=== PATIENT | male | born 1995 | race Two or more races ===

== ENCOUNTER 2021-10-11 03:21 | Inpatient (IN) | payer OTHER ==
[~2021-10-11] VITALS: Ht 177.8 cm; Wt 79.5 kg
[2021-10-11] MEDS ORDERED: ONDANSETRON HCL 4 MG/2 ML VIAL IVP ONE (04:00)
[2021-10-11] MEDS ORDERED: SODIUM CHLORIDE 0.9% 1,000 ML IV ONE (04:00)
[2021-10-11] MEDS ORDERED: KETOROLAC TROMETHAMINE 30 MG/ML VIAL IVP ONE (04:00)
[2021-10-11 04:39] LABS: COVID AG,FIA SOURCE NASOPHARYNGEAL
[2021-10-11 04:41] LABS: APPEARANCE,URINE HAZY (CLEAR); BILIRUBIN,URINE NEGATIVE (NEGATIVE); GLUCOSE, URINE (UA) NEGATIVE (NEGATIVE); KETONES,URINE NEGATIVE (NEGATIVE); LEUKOCYTE ESTERASE ,URINE LARGE (NEGATIVE); NITRATE,URINE NEGATIVE (NEGATIVE); OCCULT BLOOD,URINE LARGE (NEGATIVE); PH,URINE 6.5 (5.0-8.0); PROTEIN,URINE 30-70 mg/dL (NEGATIVE); SPECIFIC GRAVITIY, URINE 1.011 (1.003-1.030); UROBILINOGEN,URINE <=1.0 mg/dL (<=1.0)
[2021-10-11 04:42] LABS: BASOPHILS % (AUTO) 0.5 % (0.0-2.0); HEMATOCRIT 42.6 % (41-53); HEMOGLOBIN 14.6 g/dL (13.5-17.5); LYMPHOCYTES % (AUTO) 20.4 % (22.0-44.0); MEAN CORPUSCULAR HEMOGLOBIN 28.9 pg (26.0-34.0); MEAN CORPUSCULAR HGB CONC 34.2 G/dL (31.0-37.0); MEAN CORPUSCULAR VOLUME 84 fL (80-100); MONOCYTES # (AUTO) 0.6 K/uL (0.1-1.0); MONOCYTES % (AUTO) 5.9 % (2.0-9.0); NEUTROPHILS # (AUTO) 5.6 K/uL (1.8-7.7); NEUTROPHILS % (AUTO) 56.1 % (40.0-70.0); PLATELET COUNT (AUTO) 239 K/uL (150-450); RED BLOOD CELL COUNT(AUTO) 5.05 MIL/uL (4.50-5.90); RED CELL DISTRIBUTION WIDTH 13.1 % (11.5-14.5)
[2021-10-11 04:51] LABS: BACTERIA,URINE None Seen /HPF (None Seen); RBC,URINE 51-100 /HPF (0-2)
[2021-10-11 04:53] LABS: ANION GAP 10 mmol/L (8-16); CALCIUM, TOTAL 9.2 mg/dL (8.8-10.5); CARBON DIOXIDE 26 mmol/L (22-29); CHLORIDE 102 mmol/L (98-107); CREATININE 0.78 mg/dL (0.60-1.30); GLUCOSE,RANDOM 104 mg/dL (70-110); POTASSIUM 3.6 mmol/L (3.5-5.1); SODIUM SERUM 138 mmol/L (136-145); UREA NITROGEN, BLOOD 14 mg/dL (7-18)
[2021-10-11 04:54] LABS: GLOMERULAR FILTR. RATE CALC > 60 mL/min (>60)
[2021-10-11 04:56] LABS: EOSINOPHILS % (AUTO) 17.1 % (1.0-6.0)
[2021-10-11 04:59] LABS: ALANINE AMINOTRANSFERASE 51 U/L (12-78); ALKALINE PHOSPHATASE 100 U/L (46-116); ASPARTATE AMINOTRANSFERASE 26 U/L (15-37); BILIRUBIN,TOTAL 0.5 mg/dL (0.1-1.0); TOTAL PROTEIN, SERUM 7.4 g/dL (6.4-8.2)
[2021-10-11] MEDS ORDERED: OXYB5TAB20 PO (05:23)
[2021-10-11] MEDS: CefTRIAXone 1 GM/DEXTROSE 50 ML IV ONE ×2 (05:29→05:49)
[2021-10-11] MEDS ORDERED: ACETAMINOPHEN 325 MG TABLET PO PRN (05:30)
[2021-10-11] MEDS ORDERED: ONDANSETRON HCL 4 MG/2 ML VIAL IVP PRN (05:30)
[2021-10-11] MEDS ORDERED: 0.9% SODIUM CHLORIDE 10 ML SYRINGE IVP PRN (05:30)
[2021-10-11] MEDS: CefTRIAXone 1 GM/DEXTROSE 50 ML IV SCH (05:45)
[2021-10-11 08:00] VITALS: BP 130/81
[2021-10-11 12:00] VITALS: BP 128/76
[2021-10-11 17:10] VITALS: BP 126/69
[2021-10-11 19:50] VITALS: BP 112/65
[2021-10-12] MEDS ORDERED: SODIUM CHLORIDE 0.9% 500 ML IV ONE (03:59)
[2021-10-12 04:15] VITALS: BP 113/66
[2021-10-12] MEDS: CefTRIAXone 1 GM/DEXTROSE 50 ML IV SCH (04:58)
[2021-10-12] MEDS ORDERED: SODIUM CL IRRIG SOLN BAG 6,000 ML IRRIG ONE (07:07)
[2021-10-12] MEDS ORDERED: IOHEXOL 240 MG/ML 20 ML VIAL ONE (07:23)
[2021-10-12] MEDS ORDERED: IOHEXOL 240 MG/ML 20 ML VIAL IARTER ONE (07:30)
[2021-10-12] MEDS ORDERED: HYDROmorphone 2 MG/ML VIAL IVP PRN (07:45)
[2021-10-12] MEDS ORDERED: MEPERIDINE-PF 25 MG/ML VIAL IVP PRN (07:45)
[2021-10-12] MEDS ORDERED: FentaNYL CITRATE PF 100 MCG/2 ML VIAL IVP PRN (07:45)
[2021-10-12] MEDS ORDERED: RINGERS SOLUTION,LACTATED 1,000 ML IV ONE (07:48)
[2021-10-12] MEDS ORDERED: FentaNYL CITRATE PF 100 MCG/2 ML VIAL ONE (09:58)
[2021-10-12 11:12] VITALS: BP 125/72
[2021-10-12] MEDS: OxyCODONE HCL/ACETAMINOPHEN 10-325 MG TABLET PO PRN ×2 (14:31→21:20)
[2021-10-12 16:22] VITALS: BP 123/76
[2021-10-12 19:35] VITALS: BP 123/78
[2021-10-12] MEDS: OXYGEN THERAPY IH SCH (20:00)
[2021-10-12] MEDS ORDERED: ONDANSETRON HCL 4 MG/2 ML VIAL IVP PRN (22:00)
[2021-10-12] MEDS: MORPHINE SULFATE 2 MG/ML SYRINGE IVP PRN (23:36)
[2021-10-13 04:52] VITALS: BP 122/71
[2021-10-13] MEDS: MORPHINE SULFATE 2 MG/ML SYRINGE IVP PRN ×2 (04:54→09:32)
[2021-10-13] MEDS: CefTRIAXone 1 GM/DEXTROSE 50 ML IV SCH (05:06)
[2021-10-13] MEDS ORDERED: FentaNYL CITRATE PF 100 MCG/2 ML VIAL IVP ONE (05:45)
[2021-10-13] MEDS ORDERED: ONDANSETRON HCL 4 MG/2 ML VIAL IVP ONE (05:45)
[2021-10-13] MEDS ORDERED: PROPOFOL 1% 20 ML VIAL IVP ONE (05:45)
[2021-10-13] MEDS ORDERED: SUCCINYLCHOLINE CHLORIDE 20 MG/ML 10 ML VIAL IVP ONE (05:45)
[2021-10-13] MEDS ORDERED: MIDAZOLAM HCL 2 MG/2 ML VIAL IVP ONE (05:45)
[2021-10-13] MEDS ORDERED: LIDOCAINE/PF 2% 5 ML VIAL IM ONE (05:45)
[2021-10-13] MEDS ORDERED: KETOROLAC TROMETHAMINE 60 MG/2 ML VIAL IM ONE (05:45)
[2021-10-13 07:55] VITALS: BP 132/78
[2021-10-13] MEDS ORDERED: ACETAMINOPHEN/CODEINE 300-30 MG TABLET PO PRN (12:15)
[2021-10-13 15:40] VITALS: BP 123/79
[2021-10-13 19:40] VITALS: BP 126/76
[2021-10-13] MEDS: OXYGEN THERAPY IH SCH (20:00)
[2021-10-14 04:33] VITALS: BP 109/66
[2021-10-14] MEDS: CefTRIAXone 1 GM/DEXTROSE 50 ML IV SCH (06:18)
[2021-10-14 07:53] VITALS: BP 90/54
[2021-10-14] MEDS: OXYGEN THERAPY IH SCH (08:00)
[2021-10-14 11:15] LABS: HEMATOCRIT 33.7 % (41-53); HEMOGLOBIN 11.5 g/dL (13.5-17.5); MEAN CORPUSCULAR HGB CONC 34.1 G/dL (31.0-37.0); MEAN CORPUSCULAR VOLUME 85 fL (80-100); PLATELET COUNT (AUTO) 225 K/uL (150-450); RED BLOOD CELL COUNT(AUTO) 3.96 MIL/uL (4.50-5.90)
[2021-10-14 11:48] LABS: ALANINE AMINOTRANSFERASE 42 U/L (12-78); ALBUMIN 3.1 g/dL (3.4-5.0); ALKALINE PHOSPHATASE 77 U/L (46-116); ANION GAP 7 mmol/L (8-16); ASPARTATE AMINOTRANSFERASE 53 U/L (15-37); BILIRUBIN,TOTAL 0.2 mg/dL (0.1-1.0); CALCIUM, TOTAL 8.8 mg/dL (8.8-10.5); CARBON DIOXIDE 30 mmol/L (22-29); CHLORIDE 103 mmol/L (98-107); CREATININE 0.73 mg/dL (0.60-1.30); GLUCOSE,RANDOM 105 mg/dL (70-110); SODIUM SERUM 140 mmol/L (136-145); TOTAL PROTEIN, SERUM 6.3 g/dL (6.4-8.2); UREA NITROGEN, BLOOD 9 mg/dL (7-18)
[2021-10-14 11:51] LABS: GLOMERULAR FILTR. RATE CALC > 60 mL/min (>60)
[2021-10-14 11:54] LABS: BAND NEUTROPHILS % (MANUAL) 3 % (0-5); EOSINOPHILS % (MANUAL) 15 % (1-6); LYMPHOCYTES % (MANUAL) 18 % (22-44); MONOCYTES % (MANUAL) 2 % (2-9); SEGMENTED NEUTROPHILS % 62 % (40-70)
[2021-10-14 15:41] VITALS: BP 116/62
== END 2021-10-14 18:07 | DRG 699 ==
LOC: EMS 03:22 → 5S 05:39 → 6S 16:45
PROVIDERS: ADMIT Internal Medicine; ATTEND Internal Medicine
PROC: 0TC68ZZ Extirpation of Matter from Right Ureter, Via Natural or Artificial Opening Endoscopic (ICD-10-PCS; 2021-10-12)
PROC: 0T9B80Z Drainage of Bladder with Drainage Device, Via Natural or Artificial Opening Endoscopic (ICD-10-PCS; 2021-10-12)
PROC: BT1D1ZZ Fluoroscopy of Right Kidney, Ureter and Bladder using Low Osmolar Contrast (ICD-10-PCS; 2021-10-12)
PROC: 0TP98DZ Removal of Intraluminal Device from Ureter, Via Natural or Artificial Opening Endoscopic (ICD-10-PCS; principal; 2021-10-12 08:31)
DX: T83.84XA Pain due to genitourinary prosthetic devices, implants and grafts, initial encounter (principal); N13.6 Pyonephrosis; Y83.1 Surgical operation with implant of artificial internal device as the cause of abnormal reaction of the patient, or of later complication, without mention of misadventure at the time of the procedure; Z20.822 Contact with and (suspected) exposure to COVID-19; R80.9 Proteinuria, unspecified; Z87.442 Personal history of urinary calculi; Y92.89 Other specified places as the place of occurrence of the external cause
CPT/HCPCS: 74176; 80053; 81001; 82365; 85025; 87040; 87081; 87086; 88300; 99285; J0330; J0696; J1885; J2250; J2270; J2405; J2704; J3010; J3490; J7030; J7040; J7120; Q9966